=== PATIENT | female | born 1930 | race Caucasian/White ===

== ENCOUNTER 2016-11-03 20:02 | Emergency (ER) | payer MEDICARE, OTHER ==
[~2016-11-03] VITALS: Ht 160 cm; Wt 57.3 kg
[2016-11-03] MEDS ORDERED: SODIUM CHLORIDE FLUSH 3 ML SYR IV PRN (20:30)
[2016-11-03] MEDS ORDERED: SODIUM CHLORIDE FLUSH 10 ML SYR IV PRN (20:30)
[2016-11-03 20:54] LABS: BASOPHILS % (AUTO) 1 % (0-2); EOSINOPHILS # (AUTO) 0.2 10^3uL; EOSINOPHILS % (AUTO) 2 % (0-4); LYMPHOCYTES # (AUTO) 2.1 X10^3; MEAN CORPUSCULAR HEMOGLOBIN 28.4 PG (26.0-34.0); MEAN CORPUSCULAR VOLUME 83 FL (80-100); MEAN PLATELET VOLUME 8.4 FL (6.0-9.5); MONOCYTES # (AUTO) 1.1 X10^3; MONOCYTES % (AUTO) 13 % (3-11); NEUTROPHILS # (AUTO) 4.9 X10^3; NEUTROPHILS % (AUTO) 59 % (51-67); PLATELET COUNT 272 10^3uL (150-450); WHITE BLOOD COUNT 8.34 10^3uL (4.0-11.0)
[2016-11-03 21:08] LABS: ALBUMIN 4.3 g/dL (3.4-5.0); ANION GAP 14.7 MEQ/L (3-15); CALCULATED IONIZED CALCIUM 4.1 mg/dL (3.8-4.6); TOTAL PROTEIN 7.8 g/dL (6.4-8.5)
[2016-11-03 23:20] VITALS: BP 182/95
== END 2016-11-03 23:00 | disposition home or self-care (01) ==
LOC: ED 20:04
DX: R07.89 Other chest pain (principal)
CPT/HCPCS: 36415; 71010; 80053; 83880; 84484; 85025; 85610; 93005; 93010; 99284; 99285

== ENCOUNTER → 2016-11-24 | Outpatient (CLI) | payer MEDICARE, OTHER ==
[2016-11-24 14:32] VITALS: BP 130/72
== END ==
LOC: MHUC 13:49
PROVIDERS: ATTEND Physician Assistant
DX: L03.116 Cellulitis of left lower limb (principal)
CPT/HCPCS: 99213

== ENCOUNTER 2016-12-23 16:11 | Emergency (ER) | payer MEDICARE, OTHER ==
[~2016-12-23] VITALS: Ht 160 cm; Wt 59.0 kg
[2016-12-23 17:05] LABS: BASOPHILS % (AUTO) 1 % (0-2); EOSINOPHILS % (AUTO) 0 % (0-4); LYMPHOCYTES # (AUTO) 1.5 X10^3; MEAN CORPUSCULAR HEMOGLOBIN 28.5 PG (26.0-34.0); MEAN CORPUSCULAR VOLUME 84 FL (80-100); MEAN PLATELET VOLUME 8.1 FL (6.0-9.5); MONOCYTES # (AUTO) 0.9 X10^3; MONOCYTES % (AUTO) 8 % (3-11); NEUTROPHILS # (AUTO) 8.4 X10^3; NEUTROPHILS % (AUTO) 77 % (51-67); PLATELET COUNT 298 10^3uL (150-450); WHITE BLOOD COUNT 10.88 10^3uL (4.0-11.0)
[2016-12-23 17:16] LABS: ALBUMIN 4.6 g/dL (3.4-5.0); ANION GAP 15.1 MEQ/L (3-15); TOTAL PROTEIN 8.3 g/dL (6.4-8.5)
[2016-12-23 17:31] LABS: BILIRUBIN,URINE Negative (Negative); COLOR,URINE Yellow; GLUCOSE, URINE (UA) Negative (Negative); LEUKOCYTE ESTERASE ,URINE 2+ (Negative); PH,URINE 5.5 (5.0 - 8.0); UROBILINOGEN,URINE 0.2 mg/dL (0.2-1.0)
[2016-12-23 17:33] LABS: CLARITY,URINE Slightly Cloudy
[2016-12-23 17:34] LABS: URINE CENTRIFUGED VOLUME 12 mL
[2016-12-23] MEDS ORDERED: CIPROFLOXACIN (CIPRO) 500 MG TABLET PO ONE (18:15)
[2016-12-23 18:43] VITALS: BP 189/102
== END 2016-12-23 18:44 | disposition home or self-care (01) ==
LOC: ED 16:13
DX: F03.90 Unspecified dementia, unspecified severity, without behavioral disturbance, psychotic disturbance, mood disturbance, and anxiety (principal); N39.0 Urinary tract infection, site not specified; B02.9 Zoster without complications
CPT/HCPCS: 36415; 80053; 81003; 81015; 84443; 85025; 87088; 99284; A9270; 87147; 99283

== ENCOUNTER → 2016-12-24 | Outpatient (REF) | payer MEDICARE, OTHER ==
[2016-12-24 18:53] LABS: VITAMIN B 12 657 pg/mL (213-816)
== END ==
LOC: LAB 11:39
PROVIDERS: ATTEND Family Medicine
DX: R41.81 Age-related cognitive decline (principal)
CPT/HCPCS: 82607; 82746; 86592

== ENCOUNTER → 2016-12-29 | Outpatient (CLI) | payer MEDICARE | LOC: RAD 13:00 | PROVIDERS: ATTEND Family Medicine | DX: R41.81 Age-related cognitive decline (principal) | CPT/HCPCS: 70553; A9579 ==

== ENCOUNTER → 2017-01-04 | Outpatient (CLI) | payer MEDICARE ==
[~2017-01-04] MED LIST: AML5T PO; CIPR-226 PO; CLIN-78 PO; GBPN100C PO; HYDR-3702 PO; HYDR-700 PO; LEVO100T7 PO; LSRT50T PO; LVT.1T PO; SULF-221 PO
--- NOTE | 2017-01-04 10:47 | Diagnostic Imaging Report ---
PROCEDURE: US Carotid Duplex Bilateral. TECHNIQUE: Multiple real-time grayscale images were obtained over the carotid arteries in various projections bilaterally. Additional duplex Doppler and color Doppler images were also obtained. INDICATION: Cerebral infarct. Cognitive decline. Right neck: Calcified atheromatous plaquing is visible at the carotid bulb extending into the internal and external carotid arteries. The velocity data did not indicate any hemodynamically significant disease of the internal carotid artery. Mild stenosis, right external carotid artery, is present. Right vertebral waveform is within normal limits. Left neck: Calcified and noncalcified plaque are present involving the distal common carotid artery which is tortuous. Mild atheromatous changes are seen involving the carotid bulb. They extend into the proximal internal and external carotid arteries. The velocity data did not indicate any hemodynamically significant disease of the internal or external carotid arteries. Left vertebral waveform is within normal limits. IMPRESSION: Moderate atheromatous changes of the carotid bulbs and distal common carotid arteries as described. No hemodynamically significant stenosis is identified. Dictated by: Dictated on workstation # [id number]
== END ==
LOC: RAD 09:27
PROVIDERS: ATTEND Psychiatry & Neurology Clinical Neurophysiology
DX: I63.8 Other cerebral infarction (principal)
CPT/HCPCS: 93880

== ENCOUNTER 2017-02-13 14:30 | Emergency (ER) | payer MEDICARE ==
[~2017-02-13] VITALS: Ht 160 cm; Wt 61.0 kg
--- OUTSIDE RECORDS SUMMARY | 2017-02-13 14:34 | XMS REPORT | Continuity of Care Document ---
Author Author [facility] Hospital Address Unknown Phone Unavailable Care Team Providers Care Wiring Mechanic Name Role Phone SHERRILL ESCALANTE MD PCP [phone] Insurance Providers Payer Name Policy Number Subscriber Name Relationship Medicare A And B [id number] Gwen Cid 18 Self / Same As Patient Other1 [id number] Gwen Cid 18 Self / Same As Patient Advance Directives Directive Response Recorded Date/Time Advanced Directives Unknown 12/23/16 4:13pm Type Living Will 12/23/16 4:13pm Chief Complaint and Reason for Visit Chief Complaint Psychological Complaint Reason for Visit [id number] Dementia Problems Active Problems Medical Problem Onset Date Status Cellulitis of left ankle ~04/15/2015 Acute Chest discomfort Unknown Acute Chronic pain of right knee 09/08/2016 Acute Chronic right hip pain 09/08/2016 Acute Costochondritis, acute Unknown Acute Dementia Unknown Acute Hypothyroid ~05/01/2015 Acute Pruritus Unknown Acute UTI (urinary tract infection) Unknown Acute Medications Current Home Medications Medication Dose Units Route Directions Days/Qty Instructions Start Date Levothyroxine Sodium (Synthroid) 100 Mcg 100 Mcg ORAL Daily 05/01/15 Amlodipine Besylate (Norvasc) 5 Mg 5 Mg ORAL Daily 05/01/15 Losartan Potassium (Cozaar) 50 Mg 50 Mg ORAL Daily 05/01/15 Hydroxyzine Hcl 25 Mg 25-50 Mg ORAL Every 6 Hours 30 09/08/16 Gabapentin (Neurontin) 100 Mg 100 Mg ORAL Three Times A Day 12/23/16 Ciprofloxacin Hcl 250 Mg 250 Mg ORAL Twice A Day 10 12/23/16 Past Home Medications Medication Directions Ordered Status [Unknown] , 04/15/15 Discontinued Clindamycin Hcl 150 Mg Cap, 150 Mg Oral Four Times Daily 04/15/15 Discontinued Levothyroxine Sodium 100 Mcg Tablet, 100 Mcg Oral Daily 05/01/15 Discontinued Hydrocodone Bit/Acetaminophen 1 Each Tablet, 1 Each Oral Every 6 Hours for Pain 09/08/16 Discontinued Sulfamethoxazole/Trimethoprim (Bactrim Ds 800MG/160MG) 1 Each Tablet, 1 Each Oral Twice A Day 11/24/16 Discontinued Social History Query Response Start Date Stop Date Smoking Status Never smoker Hospital Discharge Instructions No hospital discharge instructions. Plan of Care Discharge Date 12/23/16 6:44pm Disposition 01 HOME OR SELF-CARE Condition at Discharge Stable Instructions/Education Provided Urinary Tract Infections in Adults Prescriptions See Medication Section Referrals SHERRILL ESCALANTE MD - Additional Instructions/Education Follow up with primary care provider in am at 9:45 am. Please retreat to your room this evening. If symptoms worsen, return to ER. Take the medication as directed Some of your test results may not be complete prior to your leaving the Emergency Department. The Emergency Department is not authorized to give test results over the phone. Please contact the doctor's office listed in this packet of information for your final results. Follow up with your primary care physician or return to the Emergency Department for worsening or worrisome symptoms. * Emergency Department phone number: [phone], x [phone]* MEDICAL RECORD If you need copies of your X-rays, call [phone]. If you need copies of your medical record, including lab results, a signed authorization for release of records will be required. A telephone call for release of Health Information is not allowed. BILLING Billing can sometimes be confusing and frustrating. To help avoid confusion in the future, please take a moment to acquaint yourself with the billing parties for services. SERVICE BILLING LIBERTARIAN Emergency Room Services [facility] Physician Services [facility] [place] [facility] Patients will receive bills for services from the appropriate provider. If you have any questions about your [facility] bill, our staff will be happy to assist you. Please call [phone], and ask for the billing department. THANK YOU for choosing [facility] as your emergency care provider! Care Plan and Goals ~~Discharge Care Plan~~ Problem: Problems with coping. Goal: Patient will use appropriate resources to deal with life situations. Instructions: Call [employer] [facility] hotline @ for assistance. Follow up with screener as directed. Functional Status No functional status results. Allergies, Adverse Reactions, Alerts Allergen Type Severity Reaction Status Last Updated Penicillin Allergy Severe Anaphylaxis Active 11/03/16 mycins Allergy Unknown Active 04/15/15 Immunizations No immunization records. Vital Signs Acute Vital Signs Vital Response Date/Time Temperature (Fahrenheit) 97.1 12/23/2016 6:43pm Pulse 94 bpm 12/23/2016 6:43pm Respirations 16 12/23/2016 6:43pm Height 5 ft 3 in Weight 130 lb Body Mass Index 23.0 kg/m^2 Results Pending Laboratory Results Test Name Collection Date/Time Procedures No known history of procedures. Encounters Encounter Location Arrival/Admit Date Discharge/Depart Date Attending Provider Departed Emergency Room [facility] 12/23/16 4:13pm 12/23/16 6:44pm EMMANUELLE MATIAS MD Registered Clinic [facility] 11/24/16 1:49pm SHAKEEL COKER Recent Diagnosis
[2017-02-13] MEDS ORDERED: IBP200T PO (15:44)
[2017-02-13 16:07] LABS: BASOPHILS % (AUTO) 1 % (0-2); EOSINOPHILS # (AUTO) 0.1 10^3uL; EOSINOPHILS % (AUTO) 1 % (0-4); MEAN CORPUSCULAR HEMOGLOBIN 29.1 PG (26.0-34.0); MEAN CORPUSCULAR HGB CONC 34.3 g/dL (31.0-37.0); MEAN CORPUSCULAR VOLUME 85 FL (80-100); MEAN PLATELET VOLUME 7.9 FL (6.0-9.5); MONOCYTES % (AUTO) 8 % (3-11); NEUTROPHILS # (AUTO) 9.3 X10^3; NEUTROPHILS % (AUTO) 75 % (51-67); PLATELET COUNT 318 10^3uL (150-450); WHITE BLOOD COUNT 12.48 10^3uL (4.0-11.0)
[2017-02-13 16:17] LABS: ALBUMIN 4.7 g/dL (3.4-5.0); ALKALINE PHOSPHATASE 114 U/L (38-126); ANION GAP 17.7 MEQ/L (3-15); BUN/CREATININE RATIO 32 (10-20); CALCULATED IONIZED CALCIUM 4.2 mg/dL (3.8-4.6); TOTAL PROTEIN 8.5 g/dL (6.4-8.5)
[2017-02-13 16:18] LABS: BILIRUBIN,URINE Negative (Negative); GLUCOSE, URINE (UA) Negative (Negative); LEUKOCYTE ESTERASE ,URINE Trace (Negative); UROBILINOGEN,URINE 0.2 mg/dL (0.2-1.0)
[2017-02-13 16:19] LABS: CLARITY,URINE Slightly Cloudy; COLOR,URINE Dark Yellow
[2017-02-13 16:29] LABS: AMPHETAMINE SCREEN, URINE Negative (Negative); CANNABINOID SCREEN, URINE Negative (Negative); METHAMPHETAMINE SCREEN URINE S NEGATIVE (NEGATIVE); OPIATE SCREEN URINE Negative (Negative); PROPOXYPHENE STAT NEGATIVE (NEGATIVE); URINE CENTRIFUGED VOLUME 12 mL
[2017-02-13 16:31] LABS: RBC,URINE 0-2 /HPF
--- NOTE | 2017-02-13 16:53 | NUR ---
[facility] CALLED RE CHANELLE HESS TSCt. CL
--- NOTE | 2017-02-13 17:01 | NUR ---
LABS & EKG FAXED TO [facility]IA JALLOH). CL
--- NOTE | 2017-02-13 18:44 | NUR ---
PT DAUGHTER STATES THEY WOULD LIKE TTO TAKE PT NOW TO GATHER SOME THINGS & "REGROUP" PRIOR TO GOING TO [place]. [facility] CALLED AGAIN TTO LET THEM KNOW THE 2ND SET OF PAPERWORK WAS FAXED AT 1818 & WHAT PT FAMILY IS WANTING. SONIA GARSIA STATES "DR PARIS WILL BE ACCEPTING HER BUT WE AREN'T ABLE TO TAKE HER UNTIL AFTER 7PM. [place] [phone] [place]". WE WILL CALL PT DAUGHTER WHEN THEY CALL US W/RM DIRECTIONS. CL
--- NOTE | 2017-02-13 18:48 | NUR ---
[facility] staff report patient is not to be transferred until after 1900. Dr. Cullen does not require doctor to doctor report.
[2017-02-13 19:00] VITALS: BP 167/86
== END 2017-02-13 19:02 ==
LOC: ED 14:32
DX: F01.51 Vascular dementia, unspecified severity, with behavioral disturbance (principal); I10 Essential (primary) hypertension; Z79.899 Other long term (current) drug therapy
CPT/HCPCS: 36415; 80053; 80307; 81003; 81015; 84443; 84484; 85025; 86140; 87088; 93005; 99283; G0480; 80320; 93010; 99285